=== PATIENT | female | born 1995 | race Caucasian/White ===

== ENCOUNTER → 2019-02-15 16:50 | Outpatient (CLI) | payer BC, SELFPAY ==
[2019-02-18 08:06] LABS: HPV APTIMA, High Risk Negative (Negative)
[2019-02-22 15:14] LABS: HPV Reflexed? NOT INDICATED
== END ==
PROVIDERS: Visit Provider Obstetrics & Gynecology
DX: Z12.4 Encounter for screening for malignant neoplasm of cervix (principal)
CPT/HCPCS: 87624; 88175; G0145

== ENCOUNTER → 2021-03-13 16:15 | Outpatient (CLI) | payer BC, SELFPAY ==
[2021-03-13 17:37] LABS: Absolute Lymphocyte Count 2.06 X10^3/uL (0.83-4.51); Absolute Neutrophil Count 8.5 X10^3/uL (2.0-7.7); Basophil# 0.05 X10^3/uL; Basophil% 0.4 % (0-1); Eosinophils% 0.9 % (0-5); Hemoglobin 11.7 g/dL (12.0-15.0); Lymphocyte # 2.06 X10^3/ul (0.83-4.51); Mean Corp Hgb Conc 32.5 g/dL (32-36); Mean Corpuscular Hgb 29.3 pg (27.0-32.0); Mean Platelet Vol. 10.7 fl (6.2-12.0); Monocyte# 0.76 X10^3/uL; Monocyte% 6.6 % (0-10); NRBC Flagged by Analyzer 0 % (0-5); Neutrophil # 8.45 X10^3/uL (2.7-7.7); Neutrophil % 73.7 % (47-70); Platelet Count 237 K/mm3 (150-450); RBC Distribution Width CV 11.9 % (11.6-14.6); RBC Distribution Width SD 39.2 fl (35.1-43.9); White Blood Count 11.5 K/mm3 (4.4-11.0)
[2021-03-14 10:32] LABS: HIV - WCH Non-Reactive (Nonreactive); Hepatitis B Surface Antigen Non-Reactive (Nonreactive); Hepatitis C Antibody Non-Reactive (Nonreactive); Rubella IgG Reactive (Nonreactive); Syphilis Antibodies Non-reactive
[2021-03-16 05:07] LABS: Chlamydia By Nucleic Acid AMP Negative (Negative)
[2021-03-16 08:40] LABS: Gonococcus By Nucleic Acid AMP Negative (Negative)
== END ==
PROVIDERS: PCP Family Medicine; Visit Provider Obstetrics & Gynecology
DX: Z34.81 Encounter for supervision of other normal pregnancy, first trimester (principal); Z11.3 Encounter for screening for infections with a predominantly sexual mode of transmission
CPT/HCPCS: 36415; 85025; 86703; 86762; 86780; 86803; 87086; 87088; 87340; 87491; 87591

== ENCOUNTER → 2021-06-13 12:06 | Outpatient (CLI) | payer SELFPAY ==
[2021-06-13 13:16] LABS: NATERA MAILED SPECIMEN
== END ==
PROVIDERS: PCP Family Medicine; Referring Provider Obstetrics & Gynecology; Visit Provider Obstetrics & Gynecology
DX: O35.0XX0 Maternal care for (suspected) central nervous system malformation in fetus, not applicable or unspecified (principal); O28.3 Abnormal ultrasonic finding on antenatal screening of mother; Z3A.00 Weeks of gestation of pregnancy not specified
CPT/HCPCS: 36415

== ENCOUNTER → 2021-07-30 14:21 | Outpatient (CLI) | payer OTHER, SELFPAY ==
[2021-07-30 16:21] LABS: Absolute Lymphocyte Count 1.69 X10^3/uL (0.83-4.51); Absolute Neutrophil Count 9.2 X10^3/uL (2.0-7.7); Basophil# 0.04 X10^3/uL; Basophil% 0.3 % (0-1); Eosinophil# 0.07 X10^3/uL; Eosinophils% 0.6 % (0-5); Hematocrit 36.4 % (37-47); Hemoglobin 11.8 g/dL (12.0-15.0); Lymphocyte # 1.69 X10^3/ul (0.83-4.51); Lymphocyte % 14.4 % (19-41); Mean Corp Hgb Conc 32.4 g/dL (32-36); Mean Corpuscular Hgb 29.8 pg (27.0-32.0); Mean Corpuscular Volume 91.9 fL (81-99); Mean Platelet Vol. 10.8 fl (6.2-12.0); Monocyte# 0.63 X10^3/uL; Monocyte% 5.4 % (0-10); NRBC Flagged by Analyzer 0 % (0-5); Neutrophil # 9.21 X10^3/uL (2.7-7.7); Neutrophil % 78.5 % (47-70); Platelet Count 208 K/mm3 (150-450); RBC Distribution Width CV 12.3 % (11.6-14.6); RBC Distribution Width SD 41.1 fl (35.1-43.9); Red Blood Count 3.96 M/mm3 (4.2-5.4); White Blood Count 11.7 K/mm3 (4.4-11.0)
[2021-07-30 16:53] LABS: Glucose Challenge Gest 1H 50g 112 mg/dL (70-140)
== END ==
PROVIDERS: PCP Family Medicine; Visit Provider Obstetrics & Gynecology
DX: Z34.92 Encounter for supervision of normal pregnancy, unspecified, second trimester (principal); Z13.1 Encounter for screening for diabetes mellitus
CPT/HCPCS: 36415; 82950; 85025

== ENCOUNTER → 2021-08-01 08:01 | Outpatient (CLI) | payer OTHER, SELFPAY ==
--- NOTE | 2021-08-01 08:03 | US_ITS ---
STUDY: SECOND AND THIRD TRIMESTER OBSTETRICAL ULTRASOUND - LIMITED REASON FOR EXAM: Female, 26 years old placenta follow-up -- 28 weeks LMP: 01/17/2021. PRIOR ULTRASOUND: None. TECHNIQUE: Transabdominal and Transvaginal TECHNICAL QUALITY: Adequate. FINDINGS: There is a single intrauterine fetus. The fetus is in a cephalic presentation. There is demonstrated cardiac activity with a heart rate of 152 bpm. There is a normal amniotic fluid volume. The largest amniotic fluid pocket measures 4.5 cm x 2.6 cm. The amniotic fluid index (KEN) is 13.7 cm. The placenta is anterior in location and is not low lying. There are Grade 0 placental changes. The cervix measures 3.6 cm in length. BIOMETRY: Age by LMP: 28 weeks, 0 days. [place] by LMP: 10/24/2021. IMPRESSION: The placenta is anterior and not low-lying. The tip is at 6.1 cm from the cervix. Electronically Signed: David De Jesus MD at 15:34 EST , Service support , STUDY: FIRST TRIMESTER OBSTETRICAL ULTRASOUND REASON FOR EXAM: Female, 26 years old placenta follow-up -- 28 weeks LMP: 01/17/2021 TECHNIQUE: Transvaginal TECHNICAL QUALITY: Adequate. PRIOR ULTRASOUND: None. FINDINGS: The placenta is anterior and not low-lying. The tip of the placenta is at 6.1 cm from the cervix. US/OB Limited (No Biometrics) IMPRESSION: The tip of the placenta is at 6.1 cm from the cervix. Electronically Signed: David De Jesus MD at 15:35 EST , Service support ,
== END ==
PROVIDERS: PCP Family Medicine; Referring Provider Obstetrics & Gynecology; Visit Provider Obstetrics & Gynecology
DX: O44.42 Low lying placenta NOS or without hemorrhage, second trimester (principal)
CPT/HCPCS: 76815; 76817

== ENCOUNTER 2021-08-31 16:10 | Outpatient (CLI) | payer OTHER, SELFPAY ==
--- NOTE | 2021-08-31 16:14 | US_ITS ---
STUDY: SECOND AND THIRD TRIMESTER OBSTETRICAL ULTRASOUND - LIMITED REASON FOR EXAM: Female, 26 years old covid 32w ultrasound LMP: 01/17/2021 PRIOR ULTRASOUND: 08/01/2021 TECHNIQUE: Transabdominal and Transvaginal TECHNICAL QUALITY: Adequate. FINDINGS: There is a single intrauterine fetus. The fetus is in a cephalic presentation. There is demonstrated cardiac activity with a heart rate of 146 bpm. There is a normal amniotic fluid volume. The largest amniotic fluid pocket measures 4 cm. The amniotic fluid index (KEN) is 12.62 cm. The placenta is anterior in location and is not low lying. There are Grade 2 placental changes. The cervix measures 3.3 cm in length. BIOMETRY: BPD: 7.95 centimeters: 31 weeks, 6 days HC: 30.24 cm: 33 weeks, 4 days AC: 27.64 cm: 31 weeks, 4 days FL: 6.19 cm: 32 weeks, 0 days Age by LMP: 32 weeks, 2 days. [place] by LMP: 10/24/2021. age by current US: 32 weeks, 4 days. [place] by current US: 10/22/2021. Estimated weight: 1871 grams, +/- 281 grams, 23.15 percentile. US/OB Limited With Biometrics IMPRESSION: Single live intrauterine at 32 weeks, 4 days by current ultrasound with [place] of 10/22/2021. Heart rate 146 bpm. No suspicious sonographic findings. Electronically Signed: Jason Ochoa MD at 17:23 EST , Service support ,
== END 2021-08-31 23:59 | disposition short-term general hospital (02) ==
LOC: US 16:12
PROVIDERS: PCP Family Medicine; Referring Provider Obstetrics & Gynecology; Visit Provider Obstetrics & Gynecology
DX: O98.513 Other viral diseases complicating pregnancy, third trimester (principal); U07.1 COVID-19; Z3A.00 Weeks of gestation of pregnancy not specified
CPT/HCPCS: 76816; 76817

== ENCOUNTER 2021-10-01 17:00 | Outpatient (CLI) | payer OTHER, SELFPAY | END 2021-10-01 23:59 | disposition home or self-care (01) | PROVIDERS: PCP Family Medicine; Referring Provider Obstetrics & Gynecology; Visit Provider Obstetrics & Gynecology | DX: Z36.85 Encounter for antenatal screening for Streptococcus B (principal) | CPT/HCPCS: 87081 ==

== ENCOUNTER 2021-10-18 16:27 | Outpatient (CLI) | payer OTHER, SELFPAY ==
--- NOTE | 2021-10-18 16:34 | US_ITS ---
STUDY: OBSTETRICAL ULTRASOUND - BIOPHYSICAL PROFILE REASON FOR EXAM: Female, 26 years old decrease movement LMP: 01/17/2021 PRIOR ULTRASOUND: 08/31/2021 TECHNIQUE: Transabdominal TECHNICAL QUALITY: Adequate. FINDINGS: There is a single intrauterine fetus. The fetus is in a cephalic presentation. There is demonstrated cardiac activity with a heart rate of 134 bpm. There is a normal amniotic fluid volume. The largest amniotic fluid pocket measures 4.3 cm. The amniotic fluid index (KEN) is 13.7 cm. The placenta is anterior in location and is not low lying. There are Grade 3 placental changes. Age by LMP: 39 weeks, 1 days. [place] by LMP: 10/24/2009. BIOPHYSICAL PROFILE: Breathing Movements (FBM): 2 Gross Body Movements (GBM): 0 Tone (FT): 2 Amniotic Fluid Volume (AFV): 2 TOTAL SCORE: 6 / 8 US/Biophysical Prof W/O Non Stres IMPRESSION: biophysical profile of 6/8. Electronically Signed: Serg Collazo MD at 17:47 EST ,
== END 2021-10-18 23:59 | disposition home or self-care (01) ==
PROVIDERS: PCP Family Medicine; Visit Provider Obstetrics & Gynecology
DX: O36.8130 Decreased fetal movements, third trimester, not applicable or unspecified (principal); Z3A.36 36 weeks gestation of pregnancy
CPT/HCPCS: 76819

== ENCOUNTER 2021-10-18 17:20 | Outpatient (CLI) | payer OTHER, SELFPAY ==
[2021-10-18 17:49] VITALS: BP 126/82; PULSE 78; TEMP 36.9
--- NOTE | 2021-10-18 20:52 | OB.TRI.NOTE ---
HPI - General HPI Narrative DAREK RICARDO, is a 26 @ 39 weeks who presents to L&D for BPP due to decreased movement. The BPP read 6/8 (baby did not have 1 of 3 movements but had 2 movements, breathing, flexion/extension, and normal KEN. an NST was ordered [facility] Medical History (Updated 10/25/21 @ 18:[address] Jodie Goldstein, DO) Supervision of normal first Home Medications multivitamin no.47-iron fum 27 mg-folate no.1 1 mg-dha 300 mg capsule 1 cap PO DAILY 03/20/21 [History Last Taken 10/19/21] aspirin 81 mg chewable tablet 81 mg PO DAILY 08/31/21 [History Last Taken 10/19/21] omega-3 fatty acids [Fish Oil] 1,250 mg PO DAILY 10/18/21 [History Last Taken 10/19/21] Allergy/AdvReac Type Severity Reaction Status Date / Time No Known Allergies Allergy Verified 10/23/21 13:37 Surgical History History of appendectomy Social History adopted: No household members: significant other current occupational status: employed current occupation: [employer] sexually active: Yes current gender identity: female Smoking Status: Never smoker alcohol intake: current details: not while substance use type: does not use seatbelt use: always do you feel safe at home: Yes additional social history: Kam History 1 Elective abortions Hx Para 1 Spontaneous abortions Hx # Term Pregnancies Ectopic pregnancies Hx # Pregnancies Multiple births # of living children 1 Past Pregnancies Del. Date Name GA/Weeks Outcome Route Bth Weight Gen Labor Lgth Anesthesia Del Locatn Provider FOB 10/20/21 Usama 39 live - full term Male [facility] Susie Delivery Date: 10/20/21 IOL Allison Hyde Constitutional Constitutional: Reports systems reviewed and no addt'l complaints, except as documented Gastrointestinal Gastrointestinal: Denies bloating, constipation, cramping, diarrhea, nausea or vomiting Genitourinary Genitourinary: Reports other Details: Denies vaginal odor, vaginal bleeding, or vaginal discharge ; Denies difficulty urinating or flank pain Physical Exam HEENT normocephalic Resp normal respiratory effort and normal air movement no CVA tenderness Extremity normal to inspection General Extremity: edema bilateral (trace ) NST FHR Rate Baby A Baseline: 140 Variability:: Moderate Accelerations:: 15 x 15 Decelerations:: None NST Reactive:: Yes FHR Category:: Category I Assessment & Plan (1) Decreased movement: PLAN: NST was reactive giving full bpp result of 03/20. patient was offered induction of labor and declined. She will see me in the office in the am for another NST. Charges/Coding Multi Select Codes Visit Charges Office Visit/Consults: 67778 OV L3 Est Urinary/Genital Urinary/Genital CPT Codes: 79397-87 non-stress test Interp
== END 2021-10-18 23:59 | disposition home or self-care (01) ==
LOC: WPOUT 17:26 → WP 17:27
PROVIDERS: PCP Family Medicine; Referring Provider Obstetrics & Gynecology; Visit Provider Obstetrics & Gynecology
DX: O36.8130 Decreased fetal movements, third trimester, not applicable or unspecified (principal); Z3A.39 39 weeks gestation of pregnancy; Z79.82 Long term (current) use of aspirin
CPT/HCPCS: 59025; 59050; 99218; G0378

== ENCOUNTER 2021-10-20 02:21 | Inpatient (IN) | payer OTHER, SELFPAY ==
[2021-10-20] VITALS (60 sets, daily range): BP systolic 80–138; BP diastolic 46–88; PULSE 67–122; RESP 16–18; TEMP 36.5–37; O2SAT 95–100; BMI 26.8
[2021-10-20] MEDS: Lactated Ringers 1,000 ML 200 ML IV ×2 (03:15→08:58)
[2021-10-20 03:40] LABS: Absolute Lymphocyte Count 2.06 X10^3/uL (0.83-4.51); Absolute Neutrophil Count 10.2 X10^3/uL (2.0-7.7); Basophil# 0.05 X10^3/uL; Basophil% 0.4 % (0-1); Eosinophil# 0.13 X10^3/uL; Hematocrit 37.9 % (37-47); Hemoglobin 13.5 g/dL (12.0-15.0); Lymphocyte # 2.06 X10^3/ul (0.83-4.51); Lymphocyte % 15.6 % (19-41); Mean Corp Hgb Conc 35.6 g/dL (32-36); Mean Corpuscular Volume 86.9 fL (81-99); Mean Platelet Vol. 12.1 fl (6.2-12.0); Monocyte# 0.77 X10^3/uL; Monocyte% 5.8 % (0-10); NRBC Flagged by Analyzer 0 % (0-5); Neutrophil # 10.15 X10^3/uL (2.7-7.7); Neutrophil % 76.7 % (47-70); Platelet Count 186 K/mm3 (150-450); RBC Distribution Width CV 12.1 % (11.6-14.6); RBC Distribution Width SD 38.7 fl (35.1-43.9); Red Blood Count 4.36 M/mm3 (4.2-5.4); White Blood Count 13.2 K/mm3 (4.4-11.0)
--- NOTE | 2021-10-20 03:57 | HP.PCM.OB_ITS ---
HPI - General General Date of Admission: 10/20/21 HPI Narrative DAREK RICARDO, is a 26 F who presents IAL 6 cm dilated with regular ctx some vb lof admits good fm Maternal Data Information [place] Calculator Estimated Delivery Date Method Current WG Current Estimate 10/24/21 LMP (Certain) 39w 3d PFSH PFS Medical History Supervision of normal first Home Medications multivitamin no.47-iron fum 27 mg-folate no.1 1 mg-dha 300 mg capsule 1 cap PO DAILY 03/20/21 [History Last Taken Unknown] aspirin 81 mg chewable tablet 81 mg PO DAILY 08/31/21 [History Last Taken Unknown] omega-3 fatty acids [Fish Oil] 1,250 mg PO DAILY 10/18/21 [History Last Taken Unknown] Allergy/AdvReac Type Severity Reaction Status Date / Time No Known Allergies Allergy Verified 10/19/21 15:35 Surgical History History of appendectomy Social History adopted: No household members: significant other current occupational status: employed current occupation: [employer] sexually active: Yes Smoking Status: Never smoker alcohol intake: current details: not while substance use type: does not use seatbelt use: always do you feel safe at home: Yes additional social history: Kam History 1 Elective abortions Hx Para Spontaneous abortions Hx # Term Pregnancies Ectopic pregnancies Hx # Pregnancies Multiple births # of living children Visit Details Expected Delivery Route/Plan Labor Preferences- CB/BF classes: yes labor support person: Ilia labor intervention preferences: open pain management options preferred: yes, open to epidural cut cord/dad catch: yes : yes PP control planned: discussed discussed possible routes of delivery and associated risks: [] special requests: [] Plans Covid status: counseled regarding risk of covid in vs vaccination and declined vaccination Flu vaccine: declined Tdap vaccine: Rhogam: na LARC form signed: yes movement and labor precautions reviewed. Problem list reviewed and updated with the most current plan of care details and appropriate orders placed. Relevant counseling for the gestational age provided. Continue routine care and follow up unless otherwise noted in visit notes/problem list details OB Flowsheet Initial Weight: 145 lb Date -?-?-?-?-?-?-?-?-?-?-?-?- EGA Weight BP Urine Prot -?-?-?-?-?-?-?-?-?-?-?-?- Glucose FHR FuHt Pres Dilation -?-?-?-?-?-?-?-?-?-?-?-?- Effaced St Visit Note 04/30/21 -?-?-?-?-?-?-?-?-?-?-?-?- 14w 5d 149 lb 4 oz (+4 lb 4 oz) 120/70 Negative -?-?-?-?-?-?-?-?-?-?-?-?- Negative 160 -?-?-?-?-?-?-?-?-?-?-?-?- GP - no cramping or bleeding. Anatomy scan ordered. 06/01/21 -?-?-?-?-?-?-?-?-?-?-?-?- 19w 2d 156 lb (+11 lb) 128/78 Negative -?-?-?-?-?-?-?-?-?-?-?-?- Negative 150 -?-?-?-?-?-?-?-?-?-?-?-?- SM- no vb crampi ng doing well 06/29/21 -?-?-?-?-?-?-?-?-?-?-?-?- 23w 2d 162 lb (+17 lb) 108/60 Negative -?-?-?-?-?-?-?-?-?-?-?-?- Negative 150 -?-?-?-?-?-?-?-?--?-?-?-?- Sm- no vb lof cr amping 07/30/21 -?-?-?-?-?-?-?-?-?-?-?-?- 27w 5d 163 lb 4 oz (+18 lb 4 oz) 128/70 Negative -?-?--?-?-?-?-?-?-?-?-?-?- Negative 152 27 -?-?-?-?-?-?-?-?-?-?-?-?- MH-NO VB, LOF. G ood FM. [facility], 28 wk labs. Wants tdap next visit. 08/17/21 -?-?-?-?-?-?--?-?-?-?-?-?- 30w 2d 164 lb (+19 lb) 100/62 Negative -?-?-?-?-?-?-?-?-?-?-?-?- Negative 128 29 -?-?-?-?-?-?-?-?-?-?-?-?- jv- no lof, vagi nal bleeding or dec fm tdap next visit 08/31/21 -?-?-?-?-?-?-?-?-?-?-?-?- 32w 2d 168 lb (+23 lb) 122/76 -?-?-?-?--?-?-?-?-?-?-?-?- 150 32 -?-?-?-?-?-?-?-?-?-?-?-?- SM- no vb lof go od fm no reuglar ctx 09/10/21 -?-?-?-?-?-?-?-?-?-?-?-?- 33w 5d 169 lb (+24 lb) 102/60 Negative -?-?-?-?-?-?-?-?-?-?-?-?- Negative 150 32 -?-?-?-?-?-?-?-?-?-?-?-?- SM- no vb lof go od fm no regular ctx nl growth 09/24/21 -?-?-?-?-?-?-?-?-?-?-?-?- 35w 5d 168 lb (+23 lb) 124/62 Negative -?-?-?-?-?-?-?-?-?-?-?-?- Negative 155 35 -?-?-?-?-?-?-?-?-?-?-?-?- SM- no vb lof go od fm no rgular ctx 10/01/21 -?-?-?-?-?-?-?-?-?-?-?-?- 36w 5d 168 lb (+23 lb) 116/82 Negative -?-?-?-?-?-?-?-?-?-?-?-?- Negative 140 36 Cephalic 1 -?-?-?-?-?-?-?-?-?-?-?-?- 30 -3 SM- no vb lof good fm no regular ctx gbs done 10/12/21 -?-?-?-?-?-?-?-?-?-?-?-?- 38w 2d 170 lb 8 oz (+25 lb 8 oz) 120/88 Negative -?-?-?-?-?-?-?-?-?-?-?-?- Negative 145 36 Cephalic 3 -?-?-?-?-?-?-?-?-?-?-?-?- 80 -2 JV- no lof , vaginal bleeding, or dec fm. 10/18/21 -?-?-?-?-?-?-?-?-?-?-?-?- 39w 1d 171 lb 6 oz (+26 lb 6 oz) 114/76 Negative -?-?-?-?-?-?-?-?-?-?-?-?- Negative -?-?-?-?-?-?-?-?-?-?-?-?- 10/19/21 -?-?-?-?-?-?-?-?-?-?-?-?- 39w 2d 172 lb (+27 lb) 138/86 Negative -?-?-?-?-?-?-?-?-?-?-?-?- Negative 39 Cephalic 4 -?-?-?-?-?-?-?-?-?-?-?-?- 90 -2 JV- no lof , vaginal bleeding, or dec fm. JV- no lof, vaginal bleeding , or dec fm. NST reactive. labor precautions discussed. 10/20/21 -?-?-?-?-?-?-?-?-?-?-?-?- 39w 3d -?-?-?-?-?-?-?-?-?-?-?-?- -?-?-?-?-?-?-?-?-?-?-?-?- NST FHR Rate Baby A Baseline: 140 Variability:: Moderate Accelerations:: 15 x 15 Decelerations:: None NST Reactive:: Yes FHR Category:: Category I Uterine Activity:: q3-5 ROS Constitutional Constitutional: Reports systems reviewed and no addt'l complaints, except as documented ENT HEENT: Reports systems reviewed and no addt'l complaints, except as documented Cardiovascular Cardiovascular: Reports systems reviewed and no addt'l complaints, except as documented Respiratory/Chest Respiratory/Chest: Reports systems reviewed and no addt'l complaints, except as documented Gastrointestinal Gastrointestinal: Reports systems reviewed and no addt'l complaints, except as documented and nausea; Denies abdominal pain Genitourinary Genitourinary: Reports systems reviewed and no addt'l complaints, except as documented, contractions Details: present and frequency (regular ) and movement Details: present Musculoskeletal Musculoskeletal: Reports systems reviewed and no addt'l complaints, except as documented Integumentary Integumentary: Reports as per HPI Neurologic Neurologic: Reports systems reviewed and no addt'l complaints, except as documented Endocrine Endocrinology: Reports systems reviewed and no addt'l complaints, except as d ocumented Physical Exam Const alert, oriented x3 and healthy appearing Constitutional Narrative: uncomfortable with contractions HEENT normocephalic and moist oral mucous membranes Head and Scalp: atraumatic Neck full ROM, no lymphadenopathy, supple and thyroid normal General: trachea midline Thyroid: thyroid normal Lymph Lymphatic: no lymphadenopathy noted Chest inspection of chest normal Resp normal respiratory effort Cardio regular rate GI normal to inspection, nondistended, normoactive bowel sounds, soft to palpation and non-tender Inspection: gravid external exam normal Bimanual Exam - Vag & Uterus: uterus non-tender Manual OB Exam: estimated gestational size appropriate, presentation cephalic, dilated, effaced and station Extremity normal to inspection General Extremity: Negative for edema Skin no rashes or lesions noted Neuro deep tendon reflexes 2+ bilaterally Motor Exam: strength 5/5 throughout and clonus absent Psych mental status grossly normal Labs Labs Labs: Blood Type A POSITIVE Antibody Screen Pending Hct 37.9 % (37-47) Hgb 13.5 g/dL (12.0-15.0) Obstetrics US Syphilis Total Ab Non-reactive Rubella IgG Antibody Reactive (Nonreactive) Hep Bs Antigen Non-Reactive (Nonreactive) Neisseria gonorrhoeae DNA (LEONOR) Negative (Negative) HIV 1&2 Antibody Non-Reactive (Nonreactive) Glucose 1 Hr 50 gm 112 mg/dL (70-140) Assessment & Plan (1) COVID-19 affecting in third trimester: COMMENT: needs baby asa growth scans at 32 and 36 weeks, 08/31 Growth nl (2) Choroid plexus cyst of fetus affecting care of mother, antepartum: COMMENT: Bilateral, NIPT- low risk (3) Supervision of normal first : QUALIFIERS: Trimester: first trimester Qualified Code(s): Z34.01 - Encounter for supervision of normal first , first trimester COMMENT: PRR [place]: 10/24/21 j carlos Forrester Spouse: Kam (4) : QUALIFIERS: Weeks of gestation: 39 weeks Qualified Code(s): Z3A.39 - 39 weeks gestation of COMMENT: GBS neg. NOB labs done at [facility]; declines ntd genetic and carrier screening. US reviewed. (5) Active labor at term: COMMENT: epidural PRN arom PRN
[2021-10-20] MEDS: Lactated Ringers 500 ML 999 ML IV (04:30)
[2021-10-20] MEDS: fentaNYL-bupivacaine (epidural) 100 ML BAG EPIDURAL (05:25)
[2021-10-20] MEDS: Oxytocin 30 units/NS 500 ml 30 UNITS/500 ML IV.SOLN IV (08:20)
[2021-10-20] MEDS: Ondansetron 4 MG/2 ML Vial IV (08:54)
[2021-10-20] MEDS: Oxytocin 30 units/NS 500 ml 30 UNITS/500 ML IV.SOLN 334 UNITS IV (09:45)
--- NOTE | 2021-10-20 09:53 | OP.PCM_ITS ---
Assessment & Plan (1) Active labor at term: COMMENT: epidural PRN arom PRN (2) COVID-19 affecting in third trimester: COMMENT: needs baby asa growth scans at 32 and 36 weeks, 08/31 Growth nl (3) Choroid plexus cyst of fetus affecting care of mother, antepartum: COMMENT: Bilateral, NIPT- low risk (4) Supervision of normal first : QUALIFIERS: Trimester: first trimester Qualified Code(s): Z34.01 - Encounter for supervision of normal first , first trimester COMMENT: PRR [place]: 10/24/21 j carlos Hoffman Spouse: Kam (5) : QUALIFIERS: Weeks of gestation: 39 weeks Qualified Code(s): Z3A.39 - 39 weeks gestation of COMMENT: GBS neg. NOB labs done at [facility]; declines ntd genetic and carrier screening. US reviewed. (6) Vaginal delivery: COMMENT: sm j carlos hoffman 39 Maternal Data Information [place] Calculator Estimated Delivery Date Method Current WG Current Estimate 10/24/21 LMP (Certain) 39w 3d Vaginal Delivery Operative Information Date of Procedure: 10/20/21 Pre-Operative Diagnosis: IAL Post-Operative Diagnosis: same Surgery / Procedure Performed: Spontaneous Vaginal Delivery Type of Anesthesia: Epidural Special Medications: none Estimated Blood Loss: 100 Fluids Replaced: crystalloid Findings Description of Procedure: Patient began pushing and delivered the head in the YOVANNY presentation. The head was delivered atraumatically . The anterior and posterior shoulders delivered without complication followed by the rest of the infant and the infant was placed on the maternal abdomen. Delayed cord clamping was employed for approximately 60 seconds. Cord was clamped and cut and gentle traction was applied to the cord and the placenta delivered spontaneously immediately following it was noted to be intact with three-vessel cord. The perineum and vagina were inspected and noted to have no laceration. EBL was 100 cc. Patient and infant tolerated delivery well. Presentation: RODRICK Amniotic Membrane Rupture Type: Artificial Amniotic Fluid Description: Clear Placental Delivery Description: Spontaneous Placenta Disposition: [facility] Cord Vessel Description: 3 Vessels Cord Entanglement: None Delayed Cord Clamping: Yes Post Vaginal Delivery Medications Given After Delivery: IV Pitocin Episiotomy Description: None Laceration: None Complication Complications: None Procedures Urinary/Genital [id number]: [id number] Vaginal Delivery [facility]
--- NOTE | 2021-10-20 09:54 | PCM.DC ---
Discharge Instructions Diet Discharge Diet: No restrictions Activity Discharge Activity: Return to Normal Activity, May Not Drive (while taking narcotic pain medications.) and May Shower May resume sexual activity in: 4-6 weeks Dressing / Incision Call your doctor if your incision/area has: Continuous Slow Oozing, Sudden Increased Bleeding, Increased Pain/ Swelling, Increased Redness and Foul Smelling Discharge Follow Up Care Please Follow Up With: Cori Richards MD When: Call [phone] to make an appointment with your doctor in 6 weeks. If you had elevated blood pressure or 4th degree laceration, you will need to be seen in 2 weeks. Test Results: Test results from this visit will be discussed in further detail at your follow-up appointment, if applicable. Discharge Plan Admission Admit Date/Time: 10/20/21 02:21 Primary Reason for Your Visit: vaginal delivery Attending Provider: Cori Richards Primary Care Provider: Arthur Cohen Discharge Orders/Prescriptions Prescriptions: No Action PNV-DHA 27 mg iron-1 mg -300 mg capsule 1 cap PO DAILY RF: 0 aspirin 81 mg tablet,chewable 81 mg PO DAILY RF: 0 Fish Oil Capsule 1,250 mg PO DAILY RF: 0 Referrals / Follow Up: Arthur Cohen MD [Primary Care Provider] - Disposition Disposition (needs filled in before D/C Order can be placed): Home, Self Care
[2021-10-20] MEDS: Naproxen 500 MG Tablet PO (20:36)
[2021-10-21] VITALS (7 sets, daily range): BP systolic 109–120; BP diastolic 59–84; PULSE 81–86; RESP 14–16; TEMP 36.3–36.8
--- NOTE | 2021-10-21 07:29 | PCM.PN.OB ---
Subjective Subjective Patient doing well without complaints. Tolerating PO. Ambulating and voiding without difficulty. feeding well. Denies chest pain, shortness of breath, calf pain/swelling, fevers, chills, lightheadedness. Objective Data Objective Data Vital Signs: Vital Signs Temp Pulse Resp BP Pulse Ox 97.3 F L 86 16 112/73 97 10/21/21 04:15 10/21/21 04:15 10/21/21 04:15 10/21/21 04:15 10/20/21 10:09 Oxygen Delivery Method Room Air Weight: 171 lb 3.2 oz Body Mass Index (BMI) 26.8 Intake & Output: Intake and Output for Last 24 Hours 10/19/21 10/20/21 10/22/21 23:59 23:59 00:59 Intake Total 2250.80 / 2250.80 Output Total 1700 / 1700 Balance 550.80 / 550.80 Lab / Micro Data Result Diagrams: 10/20/21 03:15 ROS Constitutional Constitutional: Reports systems reviewed and no addt'l complaints, except as documented Cardiovascular Cardiovascular: Reports systems reviewed and no addt'l complaints, except as documented Respiratory/Chest Respiratory/Chest: Reports systems reviewed and no addt'l complaints, except as documented Gastrointestinal Gastrointestinal: Reports systems reviewed and no addt'l complaints, except as documented Physical Exam Const alert, oriented x3 and no apparent distress HEENT Head and Scalp: atraumatic Resp normal respiratory effort GI soft to palpation and non-tender Bimanual Exam - Vag & Uterus: uterus non-tender Uterus Palpation: uterus fundus firm (below Umbilicus) Assessment & Plan (1) Vaginal delivery: COMMENT: rikki hoffman 39 PLAN: s/p PPD # 1 1. routine post delivery care 2. breast feeding- support given 3. rh positive 4. rubella immune
[2021-10-21] MEDS: Naproxen 500 MG Tablet PO (10:00)
--- NOTE | 2021-10-25 17:54 | NURSING ---
On follow up visit with Cally, mother is doing well, no symptoms of high bp, really liked Hanny Mcgee and Maria T Simpson
== END 2021-10-21 14:50 | disposition home or self-care (01) | DRG 807 ==
LOC: WPOUT 02:27 → WP 02:27 → WPOUT 02:39 → WP 02:39
PROVIDERS: Admitting Provider Obstetrics & Gynecology; PCP Family Medicine; Visit Provider Obstetrics & Gynecology
DX: O35.0XX0 Maternal care for (suspected) central nervous system malformation in fetus, not applicable or unspecified (principal); Z37.0 Single live birth; Z3A.39 39 weeks gestation of pregnancy; Z79.82 Long term (current) use of aspirin; Z86.16 Personal history of COVID-19
CPT/HCPCS: 59050; 85025; 86850; 86900; 86901; 99218; J7120; G0378; J2405

== ENCOUNTER → 2022-12-05 | Outpatient (CLI) | payer OTHER, SELFPAY ==
[2022-12-12 21:05] LABS: HPV Reflexed? NOT INDICATED
== END | disposition home or self-care (01) ==
PROVIDERS: PCP Family Medicine; Referring Provider Obstetrics & Gynecology; Visit Provider Obstetrics & Gynecology
DX: Z12.4 Encounter for screening for malignant neoplasm of cervix (principal)
CPT/HCPCS: 88175; G0145

== ENCOUNTER → 2022-12-30 | Outpatient (CLI) | payer OTHER, SELFPAY ==
[2023-01-02 07:08] LABS: Chlamydia By Nucleic Acid AMP Negative (Negative); Gonococcus By Nucleic Acid AMP Negative (Negative)
== END | disposition home or self-care (01) ==
PROVIDERS: PCP Family Medicine; Visit Provider Obstetrics & Gynecology
DX: Z34.90 Encounter for supervision of normal pregnancy, unspecified, unspecified trimester (principal)
CPT/HCPCS: 87086; 87491; 87591

== ENCOUNTER → 2023-05-20 | Outpatient (CLI) | payer OTHER, SELFPAY ==
[2023-05-20 10:54] LABS: Absolute Lymphocyte Count 1.56 X10^3/uL (0.83-4.51); Basophil# 0.03 X10^3/uL; Basophil% 0.3 % (0-1); Eosinophil# 0.05 X10^3/uL; Eosinophils% 0.5 % (0-5); Hematocrit 37.3 % (37-47); Hemoglobin 12.4 g/dL (12.0-15.0); Lymphocyte # 1.56 X10^3/ul (0.83-4.51); Lymphocyte % 16.9 % (19-41); Mean Corp Hgb Conc 33.2 g/dL (32-36); Mean Corpuscular Hgb 30.1 pg (27.0-32.0); Mean Corpuscular Volume 90.5 fL (81-99); Mean Platelet Vol. 10.4 fl (6.2-12.0); Monocyte% 5.4 % (0-10); NRBC Flagged by Analyzer 0 % (0-5); Neutrophil # 7.02 X10^3/uL (2.7-7.7); Neutrophil % 76.1 % (47-70); Platelet Count 195 K/mm3 (150-450); RBC Distribution Width CV 12.1 % (11.6-14.6); RBC Distribution Width SD 40.2 fl (35.1-43.9); Red Blood Count 4.12 M/mm3 (4.2-5.4); White Blood Count 9.2 K/mm3 (4.4-11.0)
[2023-05-20 11:19] LABS: Glucose Challenge Gest 1H 50g 51 mg/dL (70-140)
[2023-05-20 12:12] LABS: HIV - WCH Non-Reactive (Nonreactive); Hepatitis B Surface Antigen Non-Reactive (Nonreactive); Hepatitis C Antibody Non-Reactive (Nonreactive); Rubella IgG Reactive (Nonreactive); Syphilis Antibodies Non-reactive
== END | disposition home or self-care (01) ==
LOC: LAB 10:14
PROVIDERS: Obstetrics & Gynecology; PCP Family Medicine; Referring Provider Registered Nurse; Visit Provider Registered Nurse
DX: Z34.90 Encounter for supervision of normal pregnancy, unspecified, unspecified trimester (principal)
CPT/HCPCS: 36415; 82950; 85025; 86703; 86762; 86780; 86803; 86850; 86900; 86901; 87340

== ENCOUNTER → 2023-07-17 | Outpatient (CLI) | payer OTHER, SELFPAY | END | disposition home or self-care (01) | PROVIDERS: Referring Provider Registered Nurse; Visit Provider Registered Nurse | DX: Z34.90 Encounter for supervision of normal pregnancy, unspecified, unspecified trimester (principal) | CPT/HCPCS: 87077; 87081; 87186 ==

== ENCOUNTER → 2023-07-24 | Outpatient (CLI) | payer OTHER, SELFPAY ==
--- NOTE | 2023-07-24 12:40 | US_ITS ---
STUDY: SECOND AND THIRD TRIMESTER OBSTETRICAL ULTRASOUND - LIMITED REASON FOR EXAM: Female, 28 years old, uterine size date discrepancy. LMP: 11/03/2022 PRIOR ULTRASOUND: No relevant prior comparison study available TECHNIQUE: Transabdominal TECHNICAL QUALITY: Adequate. FINDINGS: There is a single intrauterine fetus. The fetus is in a cephalic presentation. There is demonstrated cardiac activity with a heart rate of 155 bpm. There is a normal amniotic fluid volume. The largest amniotic fluid pocket measures 3.3 cm. The amniotic fluid index (KEN) is 11.3 cm. The placenta is anterior in location and is not low lying. There are Grade 3 placental changes. The cervix is not visualized. BIOMETRY: BPD: 8.6 cm: 34 weeks, 6 days HC: 31.5 cm: 35 weeks, 2 days AC: 31 cm: 35 weeks, 0 days FL: 7 cm: 36 weeks, 1 days Age by LMP: 37 weeks, 4 days. [place] by LMP: 08/10/2023. age by current US: 35 weeks, 1 days. [place] by current US: 08/27/2023. Estimated weight: 2666 grams, +/- 400 grams, 12.5 percentile. US/OB Limited With Biometrics IMPRESSION: Single live intrauterine fetus in cephalic presentation with an estimated gestational age of 35 weeks and 1 day. The [place] is 08/27/2023. Electronically Signed: Vinod Scanlon MD at 10:08 [facility] ,
== END | disposition home or self-care (01) ==
PROVIDERS: PCP Family Medicine; Referring Provider Registered Nurse; Visit Provider Registered Nurse
DX: O26.843 Uterine size-date discrepancy, third trimester (principal); O32.1XX0 Maternal care for breech presentation, not applicable or unspecified; Z3A.00 Weeks of gestation of pregnancy not specified
CPT/HCPCS: 76816

== ENCOUNTER 2023-08-06 18:40 | Inpatient (IN) | payer OTHER, SELFPAY ==
[2023-08-06] VITALS (24 sets, daily range): BP systolic 119–133; BP diastolic 61–83; PULSE 81–103; TEMP 36.5–36.6; O2SAT 99–100; BMI 25.2
--- NOTE | 2023-08-06 19:09 | HP.PCM.OB_ITS ---
HPI - General General Date of Admission: 08/06/23 Date of Service: 08/06/23 Chief Complaint: contractions HPI Narrative DAREK CEBALLOS, is a 28 F who presents at 39.3 with contractions since 11am. denies LOF/VB. active fetus. GBS positive. growth at 12% at 37 weeks. confirmed vertex. Maternal Data Information [place] Calculator Estimated Delivery Date Method Current WG Current Estimate 08/10/23 LMP (Certain) 39w 3d PFSH PFSH Medical History (Updated 08/06/23 @ 19:16 by Samaria Ho CNM) Breech presentation Supervision of normal first Home Medications multivitamin no.47-iron fum 27 mg-folate no.1 1 mg-dha 300 mg capsule (PNV-DHA) 1 cap PO DAILY Check with primary doctor 03/20/21 [History Last Taken 10/19/21] ondansetron 4 mg disintegrating tablet 4 mg PO Q6H #30 tabs 12/20/22 [Rx Last Taken Unknown] promethazine 12.5 mg tablet 12.5 mg PO TID PRN nausea and vomiting #30 tabs 12/25/22 [Rx Last Taken Unknown] Allergy/AdvReac Type Severity Reaction Status Date / Time No Known Allergies Allergy Verified 08/06/23 10:39 Surgical History History of appendectomy History of tonsillectomy Social History adopted: No household members: spouse number of children: 1 current occupational status: employed current occupation: [employer] current occupational exposures/hazards: No pets and animals: No history of recent travel: No sexually active: Yes Smoking Status: Never smoker alcohol intake: current details: not while substance use type: does not use well-balanced diet: daily or most days caffeine: No eating out: 1-3 times/week during the past year weight has: remained stable what type of physical activity do you participate in: aerobics and weight training frequency: 3-4 times per week duration: 45-60 minutes/day carol ann/evangelical: Non-Protestant/Independent seatbelt use: always do you feel safe at home: Yes additional social history: Kam- PureHistory History 2 Elective abortions Hx Para 1 Spontaneous abortions Hx # Term Pregnancies Ectopic pregnancies Hx # Pregnancies Multiple births # of living children 1 Past Pregnancies Del. Date Name GA/Weeks Outcome Route Bth Weight Infant Gen Labor Lgth Anesthesia Del Adatn Provider FOB 10/20/21 Usama 39 live - full term Male [facility] Susie Delivery Date: 10/20/21 Last Updated by: Allison Licea IOL Visit Details Expected Delivery Route/Plan Labor Preferences- CB/BF classes: no labor support person: Ilia labor intervention preferences: [] pain management options preferred: epidural cut cord/dad catch: yes : yes PP control planned: discussed discussed possible routes of delivery and associated risks: [] special requests: [] Plans Covid status:declines Flu vaccine: declines Tdap vaccine: declines Rhogam: na LARC form signed: yes Problem list reviewed and updated with the most current plan of care details and appropriate orders placed. Relevant counseling for the gestational age provided. Continue routine care and follow up unless otherwise noted in visit notes/problem list details OB Flowsheet Initial Weight: Not Recorded Date -?-?-?-?-?-?-?-?-?-?-?-?- EGA Weight BP Urine Prot -?-?-?-?-?-?-?-?-?-?-?-?- Glucose FHR FuHt Pres Dilation -?-?-?-?-?-?-?-?-?-?-?-?- Effaced St Visit Note 12/30/22 -?-?-?-?-?-?-?-?-?-?-?-?- 8w 1d 139 lb 6 oz 133/82 -?-?-?-?-?-?-?-?-?-?-?-?- 180 -?-?-?-?-?-?-?-?-?-?-?-?- Sm- CRL 2cm cons with LMP 01/29/23 -?-?-?-?-?--?-?-?-?-?-?-?- 12w 3d 139 lb 115/72 Negative -?-?-?-?-?-?-?-?-?-?-?-?- Negative 170 -?-?-?-?-?-?-?-?-?-?-?-?- JV- declines NIP T. good movement seen on us today. needs new ob labs. 02/27/23 -?-?-?-?-?-?-?-?-?-?-?-?- 16w 4d 143 lb 2 oz 104/63 Nega tive -?-?-?-?-?-?-?-?-?-?-?-?- Negative 140 -?-?-?-?-?-?-?-?-?-?-?-?- LC-no vb/[place] g. has anatomy scheduled. has not obtained NOB labs yet, encouraged to obtain. discussed and declines afp. 03/27/23 -?-?-?-?-?-?-?-?-?-?-?-?- 20w 4d 150 lb 6 oz 105/65 -?-?-?-?-?-?-?-?-?-?-?-?- 150 -?-?-?-?-?-?-?-?-?-?-?-?- JV- round ligame nt pain, some cramping. no bleeding, and is feeling movement 04/24/23 -?-?-?-?-?-?-?-?-?-?-?-?- 24w 4d 154 lb 8 oz 109/67 Nega tive -?-?-?-?-?-?-?-?-?-?-?-?- Negative 136 24 -?-?-?-?-?-?-?-?-?-?-?-?- LC- no vb/ctx/lo f. good fm. 28 week labs ordered. declines flu vaccines 05/20/23 -?-?-?-?-?-?-?-?-?-?-?-?- 28w 2d 158 lb 118/84 Negative -?-?-?-?-?-?-?-?-?-?-?-?- Negative 147 28 -?-?-?-?-?-?-?-?-?-?-?-?- -NO VB, LOF. G ood FM. Labs today. declines flu, tdap. 06/03/23 -?-?-?-?-?-?-?-?-?-?-?-?- 30w 2d 156 lb 8 oz 126/84 Nega tive -?-?-?-?-?-?-?-?-?-?-?-?- Negative 153 30 -?-?-?-?-?-?-?-?-?-?-?-?- MH-No VB, LOF. G ood FM. Denies concerns 06/17/23 -?-?-?-?-?-?-?-?-?-?-?-?- 32w 2d 158 lb 8 oz 117/74 Nega tive -?-?-?-?-?-?-?-?-?-?-?-?- Negative 140 32 -?-?-?-?-?-?-?-?-?-?-?-?- KW-no vb/lof/ctx . good fm no concerns today. 06/30/23 -?-?-?-?-?-?-?-?-?-?-?-?- 34w 1d 159 lb 4 oz 106/69 Nega tive -?-?-?-?-?-?-?-?-?-?-?-?- Negative 147 33 -?-?-?-?-?-?-?-?-?-?-?-?- kw- no vb/lof/ct x. good fm. Denies concerns 07/17/23 -?--?-?-?-?-?-?-?-?-?-?-?- 36w 4d 160 lb 105/68 Negative -?-?-?-?-?-?-?-?-?-?-?-?- Negative 140 34 Breech -?-?-?-?-?-?-?-?-?-?-?-?- LC- no vb/ctx/lo f. good fm. breech on [facility] and confirmed on handheld us. gbs collected. would be interested in version if safe to do so. will obtain growth scan for size less than dates. LC- no vb/ctx/lof. good fm. breech on le[place]olds and confirmed on handheld us. gbs collected. would be interested in version if safe to do so. will obtain growth scan for size less than dates. declines VE. 07/24/23 -?-?-?-?-?-?-?-?-?-?-?-?- 37w 4d 162 lb 105/68 Negative -?-?-?-?-?-?-?-?-?-?-?-?- Negative 135 36 Cephalic -?-?-?-?-?-?-?-?-?-?-?-?- LC- no vb/ctx/lo f. good fm. VTX via handheld us and angie. will confirm with formal us that is scheduled today.GBS positive. 07/30/23 -?-?-?-?-?-?-?-?-?-?-?-?- 38w 3d 160 lb 128/85 Negative -?-?-?-?-?-?-?-?-?-?-?-?- Negative 140 36.5 Cephalic -?-?-?-?-?-?-?-?-?-?-?-?- JV- 12th% growth , cephalic today on us. rpt ken next visit. 08/06/23 -?-?-?-?-?-?-?-?-?-?-?-?- 39w 3d 161 lb 2 oz 115/81 Nega tive -?-?-?-?-?-?-?-?-?-?-?-?- Negative 145 35 Cephalic 4 .5 -?-?-?-?-?-?-?-?-?-?-?-?- 89 -1 JV- KEN 10 today. ok about talking about induction next visit. with borderline iugr, recommend sooner than later IOL(prior to 41 weeks) NST FHR Rate Baby A Baseline: 140 Variability:: Moderate Accelerations:: 15 x 15 NST Reactive:: Yes Uterine Activity:: q5 minutes ROS Cardiovascular Cardiovascular: Denies abdominal pain, chest pain, diaphoresis or dyspnea Respiratory/Chest Respiratory/Chest: Denies change in mental status, chest congestion, chest tightness, cough, shortness of breath at rest, shortness of breath with exertion, breast mass, breast pain, breast skin changes, breast swelling, change in breast shape or nipple discharge Genitourinary Genitourinary: Reports change in urinary stream Musculoskeletal Musculoskeletal: Reports none Integumentary Integumentary: Reports none Neurologic Neurologic: Reports none Psychiatric Psychiatric: Reports none Endocrine Endocrinology: Reports none Hematologic/Lymphatic Hematologic/Lymphatic: Reports none Allergic/Immunologic Allergic/Immunologic: Reports none Physical Exam Const alert, oriented x3 and no apparent distress General Appearance: cooperative, comfortable and well kempt Orientation / Consciousness: awake and oriented to person Exam Limitations: no limitations HEENT normocephalic Neck full ROM Chest inspection of chest normal Resp normal respiratory effort, normal air movement and no retractions Effort and Inspection: able to speak in complete sentences and symmetric chest movement Cardio regular rate Peripheral Pulses: pulses 2+ throughout GI normal to inspection, nondistended, normoactive bowel sounds Inspection: gravid no CVA tenderness and appearance of the vagina normal External Female Exam: normal appearance of the urethra; Negative for external lesion OB / External & Speculum: external exam normal Manual OB Exam: estimated gestational size appropriate, presentation cephalic, dilated 6, effaced 90 and station 0 Uterus Palpation: Negative for uterus tender Extremity normal to inspection Skin no rashes or lesions noted Neuro deep tendon reflexes 2+ bilaterally and gait normal Motor Exam: strength 5/5 throughout and clonus absent Psych Activity / Motor Behavior: appropriate eye contact Speech: normal speech Labs Labs Labs: Blood Type A POSITIVE Antibody Screen NEGATIVE Hct 37.3 % (37-47) Hgb 12.4 g/dL (12.0-15.0) Obstetrics Ultrasound Syphilis Total Ab Non-reactive Rubella IgG Antibody Reactive (Nonreactive) Hep Bs Antigen Non-Reactive (Nonreactive) Hepatitis C Antibody Non-Reactive (Nonreactive) Chlamydia DNA (LEONOR) Negative (Negative) N.gonorrhoeae DNA ([place]ONOR) Negative (Negative) HIV 1&2 Antibody Non-Reactive (Nonreactive) Glucose 1 Hr 50 gm 51 mg/dL (70-140) L Assessment & Plan (1) Spontaneous onset of labor: COMMENT: active labor. admit to WP. standard orders may obtain epidural for pain management (2) Positive GBS test: COMMENT: treatment in labor with PCN (3) Size of fetus inconsistent with dates in third trimester: COMMENT: growth scan ordered. 12% (4) Supervision of normal : QUALIFIERS: Normal : other normal Trimester: second trimester Qualified Code(s): Z34.82 - Encounter for supervision of other normal , second trimester COMMENT: [id number], [place] 08/10/23, PC Matty, Kam (5) : QUALIFIERS: Weeks of gestation: 39 weeks Qualified Code(s): Z3A.39 - 39 weeks gestation of COMMENT: normal anatomy. declined genetic & carrier testing, declines afp PLAN: Plan Patient presents IAL, plan expectant management for , pitocin/AROM PRN if needed. Pain management: plans epidural. GBS positive plan IV PCN. Management of any complications: none I have reviewed the [facility] and made any clinically relevant updates. Dr. Terry updated on admission, exam and poc. agrees with poc.
[2023-08-06] MEDS: Lactated Ringers 1,000 ML 999 ML IV (19:25)
[2023-08-06 19:34] LABS: Absolute Neutrophil Count 10.7 X10^3/uL (2.0-7.7); Basophil# 0.06 X10^3/uL; Basophil% 0.4 % (0-1); Eosinophil# 0.09 X10^3/uL; Eosinophils% 0.6 % (0-5); Hematocrit 38.5 % (37-47); Hemoglobin 13.3 g/dL (12.0-15.0); Lymphocyte % 17.9 % (19-41); Mean Corp Hgb Conc 34.5 g/dL (32-36); Mean Corpuscular Hgb 30.4 pg (27.0-32.0); Mean Corpuscular Volume 88.1 fL (81-99); Mean Platelet Vol. 10.8 fl (6.2-12.0); Monocyte# 0.91 X10^3/uL; Monocyte% 6.3 % (0-10); NRBC Flagged by Analyzer 0 % (0-5); Neutrophil % 73.9 % (47-70); Platelet Count 213 K/mm3 (150-450); RBC Distribution Width CV 12.5 % (11.6-14.6); RBC Distribution Width SD 40.7 fl (35.1-43.9); Red Blood Count 4.37 M/mm3 (4.2-5.4); White Blood Count 14.5 K/mm3 (4.4-11.0)
[2023-08-06 19:35] LABS: POSITIVE COUNT NO; POSITIVE DIFFERENTIAL NO; POSITIVE MORPHOLOGY NO
[2023-08-06 20:25] LABS: Syphilis Antibodies Non-reactive
[2023-08-06] MEDS: Oxytocin 10 UNITS/ML Vial IM (20:26)
[2023-08-06] MEDS: Oxytocin 15 Units/NS 250ml 15 UNITS/250 ML IV.SOLN 83 UNITS IV (20:26)
[2023-08-06] MEDS: Acetaminophen 500 MG Tablet PO (20:51)
--- NOTE | 2023-08-06 20:53 | EX.PCM.OBRPT ---
Assessment & Plan (1) (spontaneous vaginal delivery): COMMENT: LEÓN 08/06/23 IAL girl : Elsa Maternal Data Information [place] Calculator Estimated Delivery Date Method Current WG Current Estimate 08/10/23 LMP (Certain) 39w 3d Final [place]: 08/10/23 Final [place] Source: LMP Gestational age: 39.3 Vaginal Delivery Maternal Presentation Maternal Presentation: Active Labor Maternal Presentation: at 39.3 presenting in active labor at 6cm dilated to fully with urge to push prior to epidural placement. Operative Information Date of Procedure: 08/06/23 Pre-Operative Diagnosis: see problem list Post-Operative Diagnosis: Surgery / Procedure Performed: Spontaneous Vaginal Delivery Type of Anesthesia: None Estimated Blood Loss: 150 Time of Delivery: 20:16 Findings Description of Procedure: Patient began pushing and delivered the head in the RODRICK presentation. The head was delivered atraumatically and a loose nuchal cord ?1 was identified and easily reduced over the 's head. The anterior and posterior shoulders delivered without complication followed by the rest of the infant and the was placed on the maternal abdomen. Delayed cord clamping was employed for approximately 3 minutes. Cord was clamped and cut and gentle traction was applied to the cord and the placenta delivered spontaneously immediately following it was noted to be intact with three-vessel cord. The perineum and vagina were inspected and noted to have no laceration. EBL was 150cc. Patient and tolerated delivery well, entered recovery phase bonding skin to skin. Presentation: Vertex Amniotic Membrane Rupture Type: Spontaneous Time of Membrane Rupture: 2013 Amniotic Fluid Description: Clear Placental Delivery Description: Spontaneous Placenta Disposition: with patient Cord Vessel Description: 3 Vessels Cord Entanglement: Around neck x 1, loose Infant A Gender: Female (1 minute): 9 (5 minute): 9 Delayed Cord Clamping: Yes Post Vaginal Delivery Medications Given After Delivery: IM Pitocin Episiotomy Description: None Laceration: None Procedures Urinary/Genital [id number]: [id number] Vaginal Delivery global pkg
--- NOTE | 2023-08-06 21:03 | DCINST_ITS ---
Discharge Instructions Diet Discharge Diet: No restrictions Activity Discharge Activity: May Not Drive and May Shower May resume sexual activity in: 6 weeks Weight Bearing Status: Full weight bearing Dressing / Incision Call your doctor if your incision/area has: Sudden Increased Bleeding, Increased Pain/ Swelling and Foul Smelling Discharge Call your doctor if you observe: Fever of 101 or Higher, Numbness or Tingling, Change in Color, Inability to urinate, Inability to have a bowel movement, Using more than 1 pad per hour, Shortness of breath, Dizziness, Fainting spells, Chest pain, Calf discomfort and Uncontrolled pain Follow Up Care Please Follow Up With: Samaria Ho CNM When: 6 weeks , please call office to make an appointment. Congratulations on the of your baby! Test Results: Test results from this visit will be discussed in further detail at your follow- up appointment, if applicable. Discharge Plan Admission Admit Date/Time: 08/06/23 18:40 Attending Provider: Samaria Ho Primary Care Provider: Arthur Cohen Discharge Orders/Prescriptions Prescriptions: No Action PNV-DHA 27 mg iron-1 mg -300 mg capsule 1 cap PO DAILY Referrals / Follow Up: Arthur Cohen MD [Primary Care Provider] -
[2023-08-06] MEDS: Naproxen 500 MG Tablet PO (22:39)
[2023-08-07] VITALS (7 sets, daily range): BP systolic 104–126; BP diastolic 9–78; PULSE 75–98; RESP 16–18; TEMP 36.4–36.5; O2SAT 98
--- NOTE | 2023-08-07 07:58 | PCM.PN.OB ---
Subjective Subjective Patient doing well without complaints. Tolerating PO. Ambulating and voiding without difficulty. Feeding well. Denies chest pain, shortness of breath, calf pain/swelling, fevers, chills, lightheadedness. Objective Data Objective Data Vital Signs: Vital Signs Temp Pulse Resp BP Pulse Ox O2 Del Method 97.8 F 80 18 126/72 H 100 Room Air 08/06/23 22:30 08/07/23 05:22 08/07/23 05:22 08/07/23 05:22 08/06/23 22:30 08/07/23 05:22 Oxygen Delivery Method Room Air Weight: 161 lb 2.526 oz Body Mass Index (BMI) 25.2 Intake & Output: Intake and Output for Last 24 Hours 08/05/23 08/06/23 08/07/23 23:59 23:59 23:59 Intake Total 569.5 / 569.5 250 / 250 Output Total 150 / 150 600 / 600 Balance 419.5 / 419.5 -350 / -350 Lab / Micro Data 08/06/23 19:15 Labs: Laboratory Results - last 24 hr 08/06/23 19:15: WBC 14.5 H, RBC 4.37, Hgb 13.3, Hct 38.5, MCV 88.1, MCH 30.4, MCHC 34.5, RDW Std Deviation 40.7, RDW Coeff of Benjamín 12.5, Plt Count 213, MPV 10.8, Immature Gran % (Auto) 0.900, Neut % (Auto) 73.9 H, Lymph % (Auto) 17.9 L, [place] % (Auto) 6.3, Eos % (Auto) 0.6, Baso % (Auto) 0.4, Absolute Neuts (auto) 10.7 H, Absolute Lymphs (auto) 2.60, Nucleated RBC % 0, Syphilis Total Ab Non-reactive, Blood Type A POSITIVE, Antibody Screen NEGATIVE Physical Exam Const alert and oriented x3 HEENT normocephalic Eyes PERRL Neck full ROM Resp normal respiratory effort GI soft to palpation GI Narrative: FF below U Assessment & Plan (1) (spontaneous vaginal delivery): COMMENT: LEÓN 08/06/23 IAL girl : Elsa PLAN: Plan s/p PPD # 1 1. routine post delivery care 2. breast feeding- support given 3. rh positive 4. rubella immune
[2023-08-07] MEDS: Naproxen 500 MG Tablet PO (10:14)
[2023-08-08 01:17] VITALS: BP 107/69; PULSE 80; RESP 16; TEMP 36.7; O2SAT 97
--- NOTE | 2023-08-08 06:24 | PCM.PN.OB ---
Subjective Subjective Patient doing well without complaints. Tolerating PO. Ambulating and voiding without difficulty. feeding well. Denies chest pain, shortness of breath, calf pain/swelling, fevers, chills, lightheadedness. Objective Data Objective Data Vital Signs: Vital Signs Temp Pulse Resp BP Pulse Ox O2 Del Method 98.0 F 80 16 107/69 97 Room Air 08/08/23 01:17 08/08/23 01:17 08/08/23 01:17 08/08/23 01:17 08/08/23 01:17 08/08/23 01:17 Oxygen Delivery Method Room Air Weight: 161 lb 2.526 oz Body Mass Index (BMI) 25.2 Intake & Output: Intake and Output for Last 24 Hours 08/06/23 08/07/23 08/08/23 23:59 23:59 23:59 Intake Total 569.5 / 569.5 250 / 250 Output Total 150 / 150 600 / 600 Balance 419.5 / 419.5 -350 / -350 Lab / Micro Data 08/06/23 19:15 ROS Constitutional Constitutional: Reports systems reviewed and no addt'l complaints, except as documented Cardiovascular Cardiovascular: Reports systems reviewed and no addt'l complaints, except as documented Respiratory/Chest Respiratory/Chest: Reports systems reviewed and no addt'l complaints, except as documented Gastrointestinal Gastrointestinal: Reports systems reviewed and no addt'l complaints, except as documented Physical Exam Const alert, oriented x3 and no apparent distress HEENT Head and Scalp: atraumatic Resp normal respiratory effort GI soft to palpation and non-tender Bimanual Exam - Vag & Uterus: uterus non-tender Uterus Palpation: uterus fundus firm (below Umbilicus) Assessment & Plan (1) (spontaneous vaginal delivery): COMMENT: LEÓN 08/06/23 IAL girl : Elsa PLAN: Plan s/p PPD # 2 1. routine post delivery care 2. breast feeding- support given 3. rh positive 4. rubella immune
--- NOTE | 2023-08-12 11:15 | NURSING ---
Follow up phone call performed. Pt. did not answer. Voicemail left with unit phone number if pt. does desire to call back.
== END 2023-08-08 11:10 | disposition home or self-care (01) | DRG 807 ==
PROVIDERS: Admitting Provider Registered Nurse; PCP Family Medicine; Referring Provider Registered Nurse; Visit Provider Registered Nurse
DX: O42.02 Full-term premature rupture of membranes, onset of labor within 24 hours of rupture (principal); Z37.0 Single live birth; O69.81X0 Labor and delivery complicated by cord around neck, without compression, not applicable or unspecified; O99.824 Streptococcus B carrier state complicating childbirth; Z3A.39 39 weeks gestation of pregnancy; Z87.59 Personal history of other complications of pregnancy, childbirth and the puerperium
CPT/HCPCS: 59025; 59050; 85025; 86780; 86850; 86900; 86901; 99221; J7120; G0378

== ENCOUNTER → 2024-05-26 | Outpatient (CLI) | payer OTHER, SELFPAY ==
--- NOTE | 2024-05-26 11:47 | NEURO_ITS ---
NCS and/or EMG Patient Report Ordering Doctor: Lizbeth Lara DATE OF SERVICE: 05/26/24 Jocelyne presents with complaints of numbness and tingling in the right hand, worsening over the past several months. Electrodiagnostic findings: Right median motor nerve demonstrates prolonged latency with reduced amplitude and normal conduction velocity. Right ulnar motor response is within normal limits. Prolonged right median sensory latency at the wrist. Normal ulnar and radial sensory responses. Needle EMG testing wa s performed in the right upper limb. All muscles tested showed no evidence of denervation with normal motor unit action potentials. Electrodiagnostic impression: This is an abnormal study in the right upper limb. 1. Electrodiagnostic findings suggestive of right-sided median mononeuropathy. This is consistent with a moderate right carpal tunnel syndrome. 2. No electrodiagnostic evidence is noted for cervical radiculopathy. 3. No electrodiagnostic evidence is noted for cubital tunnel syndrome. Multi Select Codes Neurology Neurology Interp Codes: 88041-23 Musc test done w/n test comp (interp) and 53327-34 Nrv cndj tst 5-6 studies (interp)
== END | disposition home or self-care (01) ==
LOC: PSN 10:38
DX: R20.0 Anesthesia of skin (principal)
CPT/HCPCS: 95886; 95909